=== PATIENT | female | born 1980 | race Caucasian/White ===

== ENCOUNTER → 2018-06-24 20:52 | Outpatient (CLI) | payer MEDICAID, SELFPAY | PROVIDERS: Visit Provider Obstetrics & Gynecology | DX: Z12.4 Encounter for screening for malignant neoplasm of cervix (principal) | CPT/HCPCS: 88175; G0145 ==

== ENCOUNTER → 2018-12-31 | Outpatient (CLI) | payer MEDICAID, SELFPAY ==
[2018-12-31 17:21] LABS: Chlamydia Trachomatis by PCR Negative (Negative); Neisserai gonorrhoeae by PCR Negative (Negative); Probe Check PASS; Sample Adequacy Control PASS; Specimen Processing Control PASS
== END | disposition home or self-care (01) ==
LOC: LABSPEC 13:58
PROVIDERS: Visit Provider Obstetrics & Gynecology
DX: Z11.3 Encounter for screening for infections with a predominantly sexual mode of transmission (principal)
CPT/HCPCS: 87491; 87591

== ENCOUNTER → 2019-01-14 10:54 | Outpatient (CLI) | payer MEDICAID, SELFPAY ==
[2019-01-14 13:43] LABS: Color, Urine Yellow (Yellow); Glucose, Dipstick Normal (Normal); Ketone-Dipstick Negative (Negative); Leukocyte Esterase-Dipstick 500 /ul (Negative); Nitrite-Dipstick Negative (Negative); Occult Blood-Urine 10 /ul (Negative); Protein-Dipstick Negative (Negative); Urine Bilirubin Dipstick Negative (Negative); Urine Clarity Sl. Cloudy (Clear); Urine Urobilinogen Normal (Normal)
[2019-01-14 13:45] LABS: Amphetamine Urine VISTA NEGATIVE (<1000 ng/mL); Barbiturate Urine VISTA NEGATIVE (< 200 ng/mL); Benzodiazepine Urine VISTA NEGATIVE (< 200 ng/mL); Cocaine Urine VISTA NEGATIVE (< 300 ng/mL); Ecstacy Urine VISTA NEGATIVE (< 500 ng/mL); Methadone Urine VISTA NEGATIVE (< 300 ng/mL); PCP Urine VISTA NEGATIVE (< 25 ng/mL); THC Urine VISTA NEGATIVE (< 50 ng/mL); Thyroid Stim Hormone (TSH) 1.17 uIU/mL (0.358-3.74); Vista UDS pH Range 5
[2019-01-14 14:19] LABS: Absolute Lymphocyte Count 2.35 X10^3/ul (0.83-4.51); Absolute Neutrophil Count 5.9 X10^3/uL (2.0-7.7); Basophil# 0.02 X10^3/uL; Basophil% 0.2 % (0-1); Eosinophil# 0.16 X10^3/uL; Eosinophils% 1.8 % (0-5); Hematocrit 40.9 % (37-47); Hemoglobin 14.2 g/dl (12.0-15.0); Lymphocyte # 2.35 X10^3/ul (4.0); Lymphocyte % 26.2 % (19-41); Mean Corp Hgb Conc 34.7 g/gl (32-36); Mean Corpuscular Hgb 32.3 pg (27.0-32.0); Mean Corpuscular Volume 93.2 fL (81-99); Mean Platelet Vol. 10.9 fl (6.2-12.0); Monocyte# 0.55 X10^3/uL; Monocyte% 6.1 % (0-10); Neutrophil # 5.86 X10^3/uL (2.7-7.7); Neutrophil % 65.4 % (47-70); Platelet Count 358 K/mm3 (150-450); RBC Distribution Width CV 12.4 % (11.6-14.6); RBC Distribution Width SD 41.9 fl (35.1-43.9); Red Blood Count 4.39 M/mm3 (4.2-5.4)
[2019-01-14 14:25] LABS: POSITIVE COUNT NO; POSITIVE DIFFERENTIAL NO; POSITIVE MORPHOLOGY NO
[2019-01-14 15:11] LABS: HIV - WCH Non-Reactive (Nonreactive); Rubella IgG > 500.0 IU/mL
[2019-01-16 01:35] LABS: Prenatal RPR NONREACTIVE (NONREACTIVE)
[2019-01-16 12:58] LABS: HEPATITIS B SURFACE AG Negative (Negative); Hep C Antibodies <0.1 s/co ratio (0.0-0.9)
== END ==
PROVIDERS: Visit Provider Obstetrics & Gynecology
DX: Z34.81 Encounter for supervision of other normal pregnancy, first trimester (principal)
CPT/HCPCS: 36415; 80307; 81002; 84443; 85025; 86703; 86762; 86803; 87340

== ENCOUNTER → 2019-06-08 10:55 | Outpatient (CLI) | payer MEDICAID, SELFPAY ==
[2017-01-31 14:47] VITALS: BMI 29.4
[2019-06-08 13:49] LABS: Hematocrit 36.5 % (37-47); Hemoglobin 12.4 g/dL (12.0-15.0); Mean Corpuscular Hgb 32.7 pg (27.0-32.0); Mean Corpuscular Volume 96.3 fL (81-99); Mean Platelet Vol. 10.9 fl (6.2-12.0); Platelet Count 358 K/mm3 (150-450); RBC Distribution Width SD 45.1 fl (35.1-43.9); Red Blood Count 3.79 M/mm3 (4.2-5.4); White Blood Count 14.1 K/mm3 (4.4-11.0)
[2019-06-08 14:01] LABS: Glucose Challenge Gest 1H 50g 92 mg/dL (70-140)
== END ==
PROVIDERS: Visit Provider Obstetrics & Gynecology
DX: Z34.83 Encounter for supervision of other normal pregnancy, third trimester (principal)
CPT/HCPCS: 36415; 82950; 85027

== ENCOUNTER → 2019-07-29 13:16 | Outpatient (CLI) | payer MEDICAID, SELFPAY | LOC: WOBLAB 13:17 → LABSPEC 13:17 | PROVIDERS: Visit Provider Obstetrics & Gynecology | DX: Z36.85 Encounter for antenatal screening for Streptococcus B (principal) | CPT/HCPCS: 87081 ==

== ENCOUNTER 2019-08-13 07:15 | Inpatient (IN) | payer MEDICAID, SELFPAY ==
[2019-08-13] VITALS (17 sets, daily range): BP systolic 100–122; BP diastolic 51–64; PULSE 68–86; RESP 16–18; TEMP 35.9–37; O2SAT 96–100; BMI 30.1
[2019-08-13] MEDS: Lactated Ringers 1,000 ML 999 ML IV (07:40)
[2019-08-13] MEDS: Sodium Citrate/Citric Acid 30 ML UDC PO (08:02)
--- NOTE | 2019-08-13 08:02 | PCM.HP.OB ---
- Problem List (1) 39 weeks gestation of Status: Acute History Date of Admission: 08/13/19 Final DANISH: 08/19/19 Final DANISH Source: US <20 weeks Gestational age: 39 Weeks and 1 Days History of this : This is a 39 year-old, G [2], P [1], at 39 1/7 weeks gestational age hx prior C/S with c/o contractions q5 minutes. Decreased movement this morning. No leaking of fluid or vaginal bleeding. Medical History: Medical History (Last Updated 08/13/19 @ 08:06 by Ani Renee MD) Hip dysplasia Q65.89 Surgical History: Surgical History (Last Updated 08/13/19 @ 08:07 by Ani Renee MD) Previous section Z98.891 Allergies No Known Allergies Allergy (Verified 08/13/19 07:37) Home Medications: Home Medications Vits [Prenatabs FA] 1 tablet PO DAILY 01/31/17 Smoking Status: Former smoker Alcohol: None Number of Fetus(es): 1 NST - FHR Rate Baby A Baseline: 145 Variability:: Moderate Accelerations:: 15 x 15 Decelerations:: None NST Reactive:: Yes FHR Category:: Category I Uterine Activity:: 3/10 min History Past Pregnancies: Past Pregnancies Delivery Date Name GA/ Weeks Outcome Route Wt Sex Labor Length Anesthesia Delivery Location Provider FOB 01/2017 Bam 39 Living C/S 5lb5oz M 13 Epidural [facility] Betsey Fuentes Expected Infant Delivery Method: LEO Section Number of Visits: 11 Review of Systems Constitutional: Denies: Anorexia, Fever Eyes: Denies: Vision Change HEENT: Denies: Head Aches Cardiovascular: Denies: Chest Pain Respiratory: Denies: Shortness of Breath Gastrointestinal: Denies: Abdominal Pain, Nausea, Vomiting Physical Exam Vitals: avss General: Alert, Oriented x3, Cooperative, No apparent distress HEENT: Atraumatic, Normocephalic Cardiovascular: Regular rate, Regular Rhythm, Normal S1, Normal S2 Lungs: Clear to auscultation, Normal air movement Abdomen: Soft, Non Tender, Non-Distended, Gravid Extremities:: No edema Neurological: Neuro grossly intact Estimated gestational size: Appropriate for gestational size Presentation: Cephalic Assessment/Plan All Active Problems (Last Updated 08/13/19 @ 08:06 by Ani Renee MD) 39 weeks gestation of (Acute) Prolonged rupture of membranes (Acute) Meconium in amniotic fluid affecting management of mother in third trimester (Acute) Arrest of descent, delivered, current hospitalization (Acute) 39 weeks gestation of (Acute) This is a 39 year-old, G [2], P [1001], at 39 1/7 weeks gestational age in labor -Proceed with section as planned. -Consents previously signed reviewed. -LARC declined.
[2019-08-13 08:05] LABS: Absolute Neutrophil Count 13.9 X10^3/uL (2.0-7.7); Basophil# 0.04 X10^3/uL; Basophil% 0.2 % (0-1); Eosinophil# 0.15 X10^3/uL; Eosinophils% 0.9 % (0-5); Hematocrit 39.3 % (37-47); Hemoglobin 13.9 g/dL (12.0-15.0); Mean Corp Hgb Conc 35.4 g/dL (32-36); Mean Corpuscular Hgb 33.2 pg (27.0-32.0); Mean Corpuscular Volume 93.8 fL (81-99); Monocyte# 1.11 X10^3/uL; Monocyte% 6.4 % (0-10); NRBC Flagged by Analyzer 0 % (0-5); Neutrophil # 13.93 X10^3/uL (2.7-7.7); Neutrophil % 79.9 % (47-70); Platelet Count 279 K/mm3 (150-450); RBC Distribution Width CV 12.6 % (11.6-14.6); Red Blood Count 4.19 M/mm3 (4.2-5.4); White Blood Count 17.4 K/mm3 (4.4-11.0)
[2019-08-13] MEDS: Cefazolin 2 GM in 0.9% Normal Saline 100 ML IV (08:14)
[2019-08-13] MEDS: Oxytocin 30 units/NS 500 ml 30 UNITS/500 ML IV.SOLN 167 UNITS IV (09:42)
--- NOTE | 2019-08-13 09:55 | DCINST_ITS ---
Discharge Diet: No Restrictions Discharge Activity: Return to Normal Activity May resume sexual activity in: 4-6 weeks Lifting Restrictions: 10 lb Call your doctor if your incision/area has: Continuous Slow Oozing, Sudden Increased Bleeding, Increased Pain/ Swelling, Increased Redness, Foul Smelling Discharge Suture Line Care: Avoid Pulling/Pushing Remove Dressing in (days):: 3 Cleanse incision/area with: Soap & Water Additional Instructions: If you experience any of the following, contact your healthcare provider. * Bleeding that soaks a pad every hour for 2 hours * Fever 100.4 or higher * Unrelieved incision or abdominal pain * Swelling, redness, discharge or bleeding from your incision or episiotomy site * Your incision begins to separate * Problems urinating (including inability to urinate or burning while urinating). * Visual changes * Severe headache * Flu-like symptoms * Pain or redness in one of both of your breasts * Pain, warmth, tenderness or swelling in your legs, especially the calf area * Frequent nausea and vomiting * Symptoms of depression or anxiety If you experience any of the following, call 911 or go to the nearest Emergency Room. * Chest pain * Problems breathing * Seizure activity * Partial or complete paralysis of a body part, slurred speech, weakness or drooping of the face, or a sudden inability to walk or hold your balance Allergies/Adverse Reactions: Allergies No Known Allergies Allergy (Verified 08/13/19 07:37) Medications to take at Discharge Vits [Prenatabs FA] 1 tablet PO DAILY 01/31/17 Ibuprofen [Motrin] 600 mg PO Q8H PRN PRN #30 tab 08/14/19 Oxycodone [Oxyir] 5 mg PO Q6H PRN PRN 7 Days #28 tablet 08/14/19 Senna/Docusate Sodium [Senokot-S] 1 - 2 tab PO DAILY PRN #30 tab 08/14/19 The following prescriptions were given: Ibuprofen [Motrin] 600 mg PO Q8H PRN PRN #30 tab PRN Reason: Pain Or Fever Transmission Status: Pending to [id number] Oxycodone [Oxyir] 5 mg PO Q6H PRN PRN 7 Days #28 tablet PRN Reason: Pain Score 4-10/10 Transmission Status: Received by [id number] Senna/Docusate Sodium [Senokot-S] 1 - 2 tab PO DAILY PRN #30 tab PRN Reason: Constipation Transmission Status: Pending to [id number] Follow-Up: Call to make an appointment with your doctor for an incision check in 1-2 weeks. You will also need a 6 week post- follow up appointment. Test results from this visit will be discussed in further detail at your follow- up appointment, if applicable. Please Follow Up With: Ani Renee MD When: 1-2 weeks Primary Care Physician: Care Physician,No Primary [Primary Care Provider] -
--- NOTE | 2019-08-13 09:59 | OP.PCM_ITS ---
Problem List (1) 39 weeks gestation of Status: Acute Report of Operation Description of Surgical Findings:: Infant [id number] ([id number]) Delivery Classification: LEO Final DANISH: 08/19/19 Final DANISH Source: US <20 weeks Gestational age: 39 Weeks and 1 Days store manager: Delmy Wise Type of Anesthesia:: Spinal Date of Procedure: 08/13/19 Pre-Operative Diagnosis: 39 1/7wga, labor Post-Operative Diagnosis: 39 1/7wga, labor Indications: 39-year-old 2 para 1 presents at 39-1/7 weeks gestational age in active labor. She had history of prior section and plan to proceed with rep eat. Indications for : Repeat Elective Description of Procedure: The patient was taken to the operating room and spinal analgesia was administered. She is placed in a dorsal supine position with left lateral tilt. The perineum and abdomen were prepped and draped in sterile fashion. And the spinal was found to be adequate. A Pfannenstiel incision was made using a scalpel and brought down to incise the subcutaneous tissue and rectus fascia at the midline. Subcutaneous tissue was bluntly dissected off the fascia laterally . The fascial incision was dissected laterally and cephalad using curved Montaño scissors. The superior leaflet of the rectus fascia was grasped using Chinmay clamps and bluntly dissected and sharply dissected from the underlying rectus muscle. In a similar fashion the inferior rectus fascia was dissected from the underlying muscle. The rectus muscles were bluntly at the midline. The peritoneum was identified and entered [sharply]. The bladder blade was placed into the abdomen and the vesicouterine peritoneal fold identified. The fold was incised and a bladder flap created. Bladder blade was then repositioned to the abdomen. A low transverse hysterotomy was made using the [Metzenbaum scissors] to level of the membranes. The hysterotomy was extended bluntly cephalad and caudad. The membranes were then ruptured revealing clear fluid. The head was elevated and brought to the level of the hysterotomy and the infant delivered revealing vigorous [male] . The cord was doubly clamped and cut after 30 seconds. The infant was passed to awaiting [nursery personnel]. The placenta was [expressed] from the uterus and appeared intact on inspection. The uterus was cleared of debris. The hysterotomy was then repaired using 0 Vicryl running lock suture. A second imbricating layer was also placed for additional hemostasis. The bladder blade was removed. The a nterior cul-de-sac was cleared of debris. The peritoneum and rectus muscles were reapproximated using 2-0 Vicryl running suture. The rectus fascia was closed using 0 Stratafix running suture. The subcutaneous tissue was sponge irrigated and small capillary bleeding controlled using the Bovie device. The subcutaneous tissue was reapproximated using 2-0 Vicryl. The skin was closed using 4-0 Monocryl subcuticularly by the HYDROELECTRIC STATION OPERATOR under my supervision. Mepilex occlusive dressing was placed over the incision. The fundus was firm. The patient was then transferred to the recovery room without complication. Sponge, instrument, and needle counts were correct ?2. Amniotic Membrane Rupture Type: Artificial Amniotic Fluid Description: Clear Placenta Disposition: [facility] Drain: Mcknight to straight drain Fluids Replaced: 1700 ml Cord Entanglement: None Cord Vessel Description: 3 Vessels Esitmated Blood Loss (ml): 600 ml Gender: Male (1 minute): 8 (5 minute): 9 Delayed cord clamping: Yes Antibiotic Given: Ancef 2 grams IV x1 Pt instructed on risks of surgery: Bleeding, Anesthesia Risks, Infection, Need for Future C-Sections, Injury to surrounding structure(s) including bowel and bladder Complications: None - Admit VTE Documentation VTE Present on Admission: No VTE Mechan Device Prophylaxis: SCD's VTE Pharm Prophylaxis ordered?: No
[2019-08-13] MEDS: Lactated Ringers 1,000 ML 100 ML IV (13:06)
[2019-08-13] MEDS: Ketorolac 30 MG/ML Syringe IV ×2 (15:19→21:21)
[2019-08-13] MEDS: 0.9% Saline Lock 10 ML Syringe IV ×2 (15:20→21:57)
--- NOTE | 2019-08-13 19:24 | SUR.OPER ---
Patient up and moving in room, not on continuous pulse ox at this time.
[2019-08-14] VITALS (10 sets, daily range): BP systolic 103–126; BP diastolic 51–59; PULSE 65–76; RESP 14–18; TEMP 36.1–36.6; O2SAT 97–99
--- NOTE | 2019-08-14 00:09 | NURSING ---
Report received. This RN will now take responsibility for this patient's care.
--- NOTE | 2019-08-14 00:14 | ONC.PHONE ---
Addendum entered by Emily Carrillo RN 08/15/19 05:50: Nursing Notes (All Categories) 08/14/19 00:09 Nursing Note by Emily Carrillo Report received. This RN will now take responsibility for this patient's care. Initialized on 08/14/19 00:09 - END OF NOTE Original Note: Went into patient's room to obtain vital signs. Patient requested that vital signs be delayed as her baby is sleeping. Informed patient that this RN would come back within an hour to obtain vital signs.
[2019-08-14] MEDS: Ketorolac 30 MG/ML Syringe IV ×4 (02:56→20:40)
[2019-08-14] MEDS: 0.9% Saline Lock 10 ML Syringe IV ×3 (02:56→20:40)
[2019-08-14 03:26] LABS: Hematocrit 32.2 % (37-47); Hemoglobin 11.2 g/dL (12.0-15.0); Mean Corp Hgb Conc 34.8 g/dL (32-36); Mean Corpuscular Hgb 33.2 pg (27.0-32.0); Mean Corpuscular Volume 95.5 fL (81-99); Mean Platelet Vol. 11.6 fl (6.2-12.0); Platelet Count 211 K/mm3 (150-450); RBC Distribution Width CV 12.6 % (11.6-14.6); RBC Distribution Width SD 43.7 fl (35.1-43.9); Red Blood Count 3.37 M/mm3 (4.2-5.4); White Blood Count 12.6 K/mm3 (4.4-11.0)
[2019-08-14] MEDS: Acetaminophen 500 MG Tablet 1000 MG PO ×2 (05:33→14:01)
--- NOTE | 2019-08-14 08:20 | PCM.PN.OB ---
Patient Problems: Active and Suspected Problems (Last Updated 08/13/19 @ 08:06 by Ani Renee MD) 39 weeks gestation of (Acute) Subjective: No issues overnight. Denies heavy lochia. Pain controlled. Voiding without difficulty. Hip pain is improved after delivery. Infant nursing well. Objective: AVSS - Physical Exam Vitals/I&O's: Vital Signs Temp Pulse Resp BP Pulse Ox 97.2 F L 71 18 107/54 L 97 08/14/19 03:20 08/14/19 05:20 08/14/19 05:20 08/14/19 03:20 08/14/19 05:20 Oxygen Delivery Method Room Air Weight: 74.7 kg Body Mass Index (BMI) 30.1 Intake and Output for Last 24 Hours 08/12/19 08/13/19 08/14/19 23:59 23:59 23:59 Intake Total 2616.67 / 2616.67 720 / 720 Output Total 1400 / 1400 900 / 900 Balance 1216.67 / 1216.67 -180 / -180 General: Alert, Oriented x3, Cooperative, No apparent distress HEENT: Atraumatic, Normocephalic Lungs: Normal air movement Cardiovascular: Regular rate, Regular Rhythm, Normal S1, Normal S2 Abdomen: Soft, Non Tender, Non-Distended, - - Fundus firm and nontender, incisional dressing c/d/i Extremities: No edema, No Calf Tenderness Neurological: Neuro grossly intact Psych/Mental Status: Normal Affect, Appropriate, Alert and oriented to time, place, person, mood and affect Laboratory Results 08/13/19 07:40: Blood Type AB POSITIVE, Antibody Screen NEGATIVE 08/14/19 03:15: WBC 12.6 H, RBC 3.37 L, Hgb 11.2 L, Hct 32.2 L, MCV 95.5, MCH 33.2 H, MCHC 34.8, RDW Std Deviation 43.7, RDW Coeff of Awa 12.6, Plt Count 211, MPV 11.6 Current Medications Acetaminophen (Tylenol) 1,000 mg PO Q8H PRN PRN Reason: Pain Score 1-3/10 Last Admin: 08/14/19 05:33 Dose: 1,000 mg Documented by: Bisacodyl (Dulcolax) 10 mg RECTAL UD PRN PRN Reason: If no BM Hydrocortisone (Hytone) 1 applic TOPICAL TID PRN PRN; Protocol PRN Reason: Discomfort Lactated Ringer's () 1,000 mls @ 100 mls/hr IV .Q10H MITCH Last Admin: 08/14/19 06:21 Dose: Not Given Documented by: Naloxone HCl 4 mg/ Dextrose 504 mls @ 0 mls/hr IV .Q0M PRN; Protocol PRN Reason: Respiratory depression Ibuprofen (Motrin) 600 mg PO Q6H PRN PRN PRN Reason: Pain Score 1-3/10 Ketorolac Tromethamine (Toradol) 30 mg IV Q6H MITCH Stop: 08/15/19 09:01 Last Admin: 08/14/19 02:56 Dose: 30 mg Documented by: Methylergonovine Maleate (Methergine) 0.2 mg IM X1 PRN PRN Reason: Uterine Atony Nalbuphine HCl (Nubain) 5 mg IV Q3H PRN PRN PRN Reason: itching Stop: 08/14/19 10:50 Naloxone HCl (Narcan) 0.02 mg IV Q1M PRN PRN Reason: RR <10 and pt unresponsive Ondansetron HCl (Zofran) 4 mg IV Q4H PRN PRN PRN Reason: Nausea Oxycodone HCl (Oxyir) 5 - 10 mg PO Q4H PRN PRN PRN Reason: Pain Score 4-10/10 Prochlorperazine Edisylate (Compazine Iv) 10 mg IV Q6H PRN PRN PRN Reason: NAUSEA Senna/Docusate Sodium (Senokot-S, Mylene-Colace) 0 tablet PO DAILY PRN PRN Reason: Constipation Simethicone (Mylicon) 80 mg PO PCHS PRN PRN Reason: Indigestion/stomach pain Sodium Chloride () 5 - 15 ml IV UD PRN PRN Reason: SALINE FLUSH Last Admin: 08/14/19 02:56 Dose: 10 ml Documented by: Medical Necessity - Tobacco Use Smoking Status: Former smoker Assessment/Plan All Active Problems (Last Updated 08/13/19 @ 08:06 by Ani Renee MD) 39 weeks gestation of (Acute) This is a 39 year-old, G [2], P [2] POD#1 s/p RLTCS doing well. -Rh positive -Routine postop care
[2019-08-14] MEDS: Senna/Docusate Sodium 1 Tablet PO (09:21)
[2019-08-14] MEDS: oxyCODONE 5 MG Tablet PO (21:06)
[2019-08-15] MEDS: oxyCODONE 5 MG Tablet PO ×3 (00:50→09:28)
[2019-08-15 01:29] VITALS: BP 121/58; PULSE 63; RESP 14; TEMP 36.6
[2019-08-15] MEDS: Ketorolac 30 MG/ML Syringe IV ×2 (03:02→09:27)
[2019-08-15] MEDS: 0.9% Saline Lock 10 ML Syringe IV (03:02)
--- NOTE | 2019-08-15 06:28 | PCM.PROGNOTE ---
Patient Problems: Active and Suspected Problems (Last Updated 08/13/19 @ 08:06 by Ani Renee MD) 39 weeks gestation of (Acute) Subjective: Pain well controlled, tolerating diet, passing flatus; infant nursing well Objective: Breasts filling, nipples mildly tender, atraumatic Fundus firm, midline, u/2, lochia scant LTCS dressing dry, intact - Physical Exam Vitals/I&O's: Vital Signs Temp Pulse Resp BP Pulse Ox 97.8 F 63 14 121/58 H 98 08/15/19 01:29 08/15/19 01:29 08/15/19 01:29 08/15/19 01:29 08/14/19 20:22 Oxygen Delivery Method Room Air Weight: 164 lb 10.965 oz Body Mass Index (BMI) 30.1 Intake and Output for Last 24 Hours 08/13/19 08/14/19 08/15/19 23:59 23:59 23:59 Intake Total 2616.67 / 2616.67 720 / 720 480 / 480 Output Total 1400 / 1400 900 / 900 Balance 1216.67 / 1216.67 -180 / -180 480 / 480 General: Alert, Oriented x3, Cooperative, No apparent distress HEENT: PERRLA, EOMI Oral: Moist Mucosa Neck: Supple Lungs: Clear to auscultation, Normal air movement Cardiovascular: Regular rate, Regular Rhythm Abdomen: Bowel Sounds Present, Soft, Non Tender, Non-Distended, Passing Flatus Musculoskeletal: No Tenderness to Palpation of Joints or Extremities Neurological: Cranial nerves II-XII grossly intact, Deep Tendon Reflexes 2+/4 and Symmetrical, Neuro grossly intact Psych/Mental Status: Normal Affect, Appropriate, Alert and oriented to time, place, person, mood and affect Current Medications Acetaminophen (Tylenol) 1,000 mg PO Q8H PRN PRN Reason: Pain Score 1-3/10 Last Admin: 08/14/19 14:01 Dose: 1,000 mg Documented by: Bisacodyl (Dulcolax) 10 mg RECTAL UD PRN PRN Reason: If no BM Hydrocortisone (Hytone) 1 applic TOPICAL TID PRN PRN; Protocol PRN Reason: Discomfort Ibuprofen (Motrin) 600 mg PO Q6H PRN PRN PRN Reason: Pain Score 1-3/10 Methylergonovine Maleate (Methergine) 0.2 mg IM X1 PRN PRN Reason: Uterine Atony Naloxone HCl (Narcan) 0.02 mg IV Q1M PRN PRN Reason: RR <10 and pt unresponsive Oxycodone HCl (Oxyir) 5 - 10 mg PO Q4H PRN PRN PRN Reason: Pain Score 4-10/10 Last Admin: 08/15/19 05:35 Dose: 10 mg Documented by: Senna/Docusate Sodium (Senokot-S, Mylene-Colace) 0 tablet PO DAILY PRN PRN Reason: Constipation Last Admin: 08/14/19 09:21 Dose: 2 tablet Documented by: Simethicone (Mylicon) 80 mg PO PCHS PRN PRN Reason: Indigestion/stomach pain Last Admin: 08/14/19 21:40 Dose: 80 mg Documented by: Medical Necessity - Tobacco Use Smoking Status: Former smoker Assessment/Plan All Active Problems (Last Updated 08/13/19 @ 08:06 by Ani Renee MD) 39 weeks gestation of (Acute) Assessment: 39yo G2 now P2002 delivered by repeat LTCS at 39 1/7 weeks by 9w0d US POD #2, normal involution, normal Postoperative/ course Plan: Discharge instructions discussed Discharge home today RTO 1-2 weeks for incision check with [facility], 6 weeks for PP checkup with [facility]
[2019-08-15 08:35] VITALS: BP 114/69; PULSE 68; RESP 18; TEMP 36.1
[2019-08-15] MEDS: Senna/Docusate Sodium 1 Tablet PO (09:28)
== END 2019-08-15 10:15 | disposition home or self-care (01) | DRG 560 ==
PROVIDERS: Admitting Provider Obstetrics & Gynecology; Referring Provider Obstetrics & Gynecology; Visit Provider Obstetrics & Gynecology
PROC: (CPT 59514; principal; 2019-08-14 07:15)
DX: O34.211 Maternal care for low transverse scar from previous cesarean delivery (principal); O32.4XX0 Maternal care for high head at term, not applicable or unspecified; O77.0 Labor and delivery complicated by meconium in amniotic fluid; O36.8130 Decreased fetal movements, third trimester, not applicable or unspecified; Z87.891 Personal history of nicotine dependence; Z3A.39 39 weeks gestation of pregnancy; Z37.0 Single live birth
CPT/HCPCS: 59050; 85025; 85027; 86850; 86900; 86901; 99218; J7120; A4216; G0378; J2405

== ENCOUNTER → 2020-10-14 | Outpatient (CLI) | payer MEDICAID, SELFPAY ==
[2019-08-13 07:36] VITALS: BMI 30.1
[2020-10-18 21:14] LABS: HPV APTIMA, High Risk Negative (Negative)
== END | disposition home or self-care (01) ==
LOC: LABSPEC 11:26
PROVIDERS: Visit Provider Obstetrics & Gynecology
DX: Z12.4 Encounter for screening for malignant neoplasm of cervix (principal)
CPT/HCPCS: 87624; 88175; G0145